=== PATIENT | female | born 1975 | race Caucasian/White ===

== ENCOUNTER 2020-04-08 13:07 | Emergency (ER) | payer BC ==
[2020-04-08] MEDS ORDERED: Bacitracin Oint 1 GM U/D Packet TOP ONE (15:12)
--- NOTE | 2020-04-08 15:36 | EDM.PDOC ---
ED HPI GENERAL MEDICAL PROBLEM - General Chief Complaint: Laceration Stated Complaint: CUT FINGER Time Seen by Provider: 04/08/20 15:31 Source of Information: Reports: Patient History Limitations: Reports: No Limitations - History of Present Illness INITIAL COMMENTS - FREE TEXT/NARRATIVE: PT HAS A 1 INCH LACERATION ON THE SIDE OF THE LEFT THUMB. 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(s) Left Finger-Index Pain Score (Numeric/FACES): 1 - Related Data Allergies Allergy/AdvReac Type Severity Reaction Status Date / Time No Known Allergies Allergy Verified 04/08/20 14:08 Home Meds: Home Meds NK [No Known Home Meds] 09/19/13 [History] Past Medical History - Past Health History Medical/Surgical History: Denies Medical/Surgical History HEENT History: Reports: Impaired 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: - Past Surgical History Female Surgical History: Reports: Tubal Ligation Social & Family History - Tobacco Use Tobacco Use Status *Q: Current Every Day Tobacco User Years of Tobacco use: 10 Packs/Tins Daily: 0.5 - Caffeine Use Caffeine Use: Reports: Coffee - Alcohol Use Days Per Week of Alcohol Use: 2 Number of Drinks Per Day: 2 Total Drinks Per Week: 4 - Recreational Drug Use Recreational Drug Use: No ED ROS GENERAL - Review of Systems Review Of Systems: See Below Constitutional: Reports: No Symptoms HEENT: Reports: No Symptoms Respiratory: Reports: No Symptoms Endocrine: Reports: No Symptoms GI/Abdominal: Reports: No Symptoms Musculoskeletal: Reports: Other (LACERATION OF LEFT THUMB. ) ED EXAM, SKIN/RASH Exam: See Below Text/Narrative:: PT WAS CLEANING DEER AND SHE ENDED UP WITH A 1 INCH LACERATION ON THE OUTSIDE OF HER LEFT THUMB. Exam Limited By: No Limitations General Appearance: Alert Extremities: Other (PT HAS A 1 INCH LACERATION OF THE LEFT THUMB ON THE OUTSIDE. sHE HAS NORMAL SENSATION AND NORMAL MOTION. ) Neurological: Alert, Oriented, Normal Cognition Course - Vital Signs Last Recorded V/S: Last Vital Signs Temp 36.8 C 04/08/20 14:09 Pulse 76 04/08/20 14:09 Resp 16 04/08/20 14:09 BP 154/92 H 04/08/20 14:09 Pulse Ox 100 04/08/20 14:09 - Orders/Labs/Meds Meds: Medications Discontinued Medications Generic Name Dose Route Start Last Admin Trade Name Layton PRN Reason Stop Dose Admin Bacitracin 1 dose 04/08/20 15:12 04/08/20 15:17 Bacitracin Oint 1 Gm TOP 04/08/20 15:13 1 dose ONETIME ONE Administration Lidocaine HCl 5 ml 04/08/20 15:11 04/08/20 15:16 Xylocaine-Mpf 1% INJECT 04/08/20 15:12 5 ml ONETIME ONE Administration - Re-Assessments/Exams Free Text/Narrative Re-Assessment/Exam: 04/08/20 15:43 THE WOUND WAS INFILTRATED WITH 1% LIDOCAINE AND SCRUBBED WELL. tHE WOUND WAS CLOSED WITH 5-0 CHROMIC AND 5-0 PROLENE. iT WAS DRESSED WITH A PRESSURE DRESSING AND BACATRACIN. pT IS CURRENT WITH HER TETANUS. C Departure - Departure Time of Disposition: 15:36 Disposition: Home, Self-Care 01 Condition: Fair Clinical Impression: Laceration - Discharge Information Instructions: Laceration Care, Adult, [id number] Referrals: PCP,None [Primary Care Provider] - Forms: ED Department Discharge Care Plan Goals: KEEP DRY, NO FURTHER OINTMENTS SUTURE REMOVAL IN 7-8 DAYS. Sepsis Event Note (ED) - Evaluation Sepsis Screening Result: No Definite Risk
== END 2020-04-08 16:03 | disposition home or self-care (01) ==
LOC: JP.ED 13:07
DX: S61.012A Laceration without foreign body of left thumb without damage to nail, initial encounter (principal); F17.210 Nicotine dependence, cigarettes, uncomplicated; W26.0XXA Contact with knife, initial encounter
CPT/HCPCS: 12001; 99282; J2001; 12002